=== PATIENT | female | born 1935 | race Caucasian/White ===

== ENCOUNTER → 2017-02-16 | Outpatient (CLI) | payer MEDICARE, BC ==
--- NOTE | 2017-02-17 14:12 | RADRPT ---
Vent Rate: 71 bpm RR Interval: 0 msec NM Interval: 168 msec QRS Duration: 90 msec QT Interval: 382 msec QTC Interval: 415 msec P-R-T [place]: 61 - 58 - 54 degrees Normal sinus rhythm Normal ECG Electronically Signed By: Shon Arce [id number]
== END | disposition home or self-care (01) ==
LOC: RAD 16:01
PROVIDERS: ATTEND Internal Medicine
DX: R07.89 Other chest pain (principal)
CPT/HCPCS: 93005

== ENCOUNTER 2017-04-06 15:09 | Inpatient (IN) | payer MEDICARE, BC ==
[~2017-04-06] VITALS: Ht 157.5 cm; Wt 68.9 kg
[2017-04-06] MEDS ORDERED: SOD CHLORIDE 0.9% 1,000 ML IV STA (17:52)
[2017-04-06 18:14] LABS: ADD SCAN DIFF NO
[2017-04-06 18:17] LABS: ABNORMAL IP MESSAGE 1; BASOPHILS % 0.7 % (0.0-2.0); EOSINOPHILS # 0.1 10^3/ul (0.0-0.5); EOSINOPHILS % 2.3 % (0.0-7.0); HEMATOCRIT 43.7 % (37.0-47.0); HEMOGLOBIN 15.2 g/dl (12.0-16.0); LYMPHOCYTES # 1.8 10^3/ul (0.8-2.9); LYMPHOCYTES % 31.9 % (15.0-51.0); MEAN CORPUSCULAR HEMOGLOBIN 33.8 pg (29.0-33.0); MEAN CORPUSCULAR HGB CONC 34.8 g/dl (32.0-37.0); MEAN CORPUSCULAR VOLUME 97.1 fl (82.0-101.0); MEAN PLATELET VOLUME 13.1 fl (7.4-10.4); MONOCYTE # 0.7 10^3/ul (0.3-0.9); MONOCYTES % 11.9 % (0.0-11.0); NEUTROPHILS % 52.8 % (39.0-77.0); PLATELET COUNT 100 10^3/UL (140-415); RED CELL DISTRIBUTION WIDTH 17.5 % (11.5-14.5); WHITE BLOOD COUNT 5.6 10^3/ul (4.8-10.8)
[2017-04-06 18:33] LABS: ALBUMIN 4.2 g/dl (3.3-4.9); ALBUMIN/GLOBULIN RATIO 1.27; BILIRUBIN,DIRECT 3.7 mg/dl (0.00-0.20); BILIRUBIN,INDIRECT 2.1 mg/dl (0-1.1); BILIRUBIN,TOTAL 5.8 mg/dl (0.2-1.3); CALCIUM 9.3 mg/dl (8.4-10.2); CREATININE 0.75 mg/dl (0.44-1.00); POTASSIUM 3.9 mmol/L (3.5-5.1); TOTAL PROTEIN 7.5 g/dl (6.1-8.1)
[2017-04-06] MEDS ORDERED: ATOR40TA68 PO (18:59)
[2017-04-06] MEDS ORDERED: SOD CHLORIDE 0.9% 100 ML ONE (19:37)
[2017-04-06] MEDS ORDERED: IOHEXOL 300MG/ML 150 ML BTL ONE (19:37)
[2017-04-06 19:56] LABS: ADD UMIC YES; UR ASCORBIC ACID NEGATIVE (NEGATIVE); UR BACTERIA MANY /HPF (NONE SEEN); UR BILIRUBIN (Dip) NEGATIVE (NEGATIVE); UR BLOOD (Dip) NEGATIVE (NEGATIVE); UR CLARITY CLEAR (CLEAR); UR COLOR YELLOW (YELLOW); UR GLUCOSE (Dip) NEGATIVE (NEGATIVE); UR KETONES (Dip) NEGATIVE (NEGATIVE); UR LEUKOCYTE ESTERASE (Dip) TRACE Leu/ul (NEGATIVE); UR NITRITE (Dip) POSITIVE (NEGATIVE); UR RBC 1 /HPF (0-5); UR SPECIFIC GRAVITY (Dip) 1.006 (1.003-1.030); UR TOTAL PROTEIN (Dip) NEGATIVE (NEGATIVE); UR UROBILINOGEN (Dip) 2+ mg/dL (NEGATIVE)
[2017-04-06 20:26] LABS: HAAIG REFLEX REFLEX FILED
--- NOTE | 2017-04-06 20:54 | RADRPT ---
PROCEDURE: CT scan of the abdomen and pelvis with IV contrast. CLINICAL INDICATION: 81-year-old female with pain and jaundice. TECHNIQUE: Thin section axial, coronal and sagittal images were performed through the abdomen and pelvis following uncomplicated intravenous administration of ccs of contrast. Radiation Dose: CTDI: 11.52 and DLP: 650 One or more of the following dose reduction techniques were used: - Automated exposure control. - Adjustment of the mA and/or kV according to patient size. Use of iterative reconstruction technique. COMPARISON: No. FINDINGS: Soft tissues: There is a small midline umbilical hernia which contains fat. There are small inguina l hernias which contain fat. Lungs and pleural spaces: A 7 mm pulmonary nodule is identified in the periphery of the right middl e lobe. There is a 6 mm pleural-based pulmonary nodule in the lower periphery of the right lower lob e. There is plate-like atelectasis in the right lower lobe. There is peripheral compressive atelect asis in the bases of the lungs. No pleural effusion is identified. Heart: Normal. No pericardial effusion is identified. The liver, common bile duct and gallbladder: There is a 8 mm subcapsular lesion in the medial segmen t of the right lobe of the liver. This is likely a cyst. This should be further characterized with ultrasound for confirmation. There is diffuse fatty infiltration of the liver with periportal sobeida a. There are clips in the right upper quadrant from prior cholecystectomy. There is an fatty infil tration of the liver in the lateral segment of the left lobe of the liver. The hepatic and portal v eins are patent. Gastrointestinal: There is no evidence of a hiatal hernia. The stomach contains fluid but is otherw ise unremarkable. The small bowel loops have a normal caliber. There are diverticula in the sigmoid colon without evidence of diverticulitis. There is no evidence of diverticulitis. The vermiform a ppendix is not visualized but there are no signs of appendicitis. Pancreas: Kidneys, bladder and adrenal glands : There is a 1 x 8 mm lesion which is likely a cyst in the dorsa l upper third of the right kidney. There is a 7 mm lesion in the ventral lower third of the right k idney which is likely a small cyst. There is a 7 mm lesion in the dorsal lateral inferior third of the left kidney which is likely a cys t. There is a 5 mm lesion just superior to this in the central portion of the lower third of the le ft kidney which is too small to characterize but likely is a benign lesion such as a cyst. 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 The adrenal glands are normal. The urinary bladder is unr emarkable. Spleen: There are calcifications in the spleen as result of a prior granulomatous process. This is often the result of histoplasmosis. Lymph nodes: Normal. Reproductive system and pelvis : A 1.5 cm calcified leiomyoma is identified in the left side of the fundus of the uterus. A 1.6 cm left paraovarian cyst is noted. The 1.4 cm right ovarian cyst is no kristine. Bony elements: There are degenerative osteophytes in the thoracic and lumbar spine. There is vacuum disk phenomenon from L1-2 to L4-5. No acute bony fracture or bone metastasis is identified. Vasculature: There are atherosclerotic vascular calcifications in the abdominal aorta, common iliac arteries, internal and external iliac and common femoral arteries. IMPRESSION: 1. There is a 7 mm pulmonary nodule in the periphery of the right middle lobe. There is a 6 mm ple ural-based nodule in the periphery of the right lower lobe. Follow-up imaging is recommended in 3-6 months along with TB skin testing. 2. Periportal edema with evidence of prior cholecystectomy. 3. 8 mm subcapsular lesion in the medial segment right lobe of the liver. This is likely a benign cyst. Focal fatty infiltration of the liver near the falciform ligament in the lateral segment of t he left lobe of the liver. Ultrasound is recommended for confirmation. 4. Calcified granulomas are noted in the spleen. 5. There are small lesions in both kidneys which are likely cysts and will be further characterized by the recommended ultrasound. 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 6. Atherosclerotic vascular disease. 7. Small midline umbilical hernia containing fat. Number a 1.5 cm calcified leiomyoma left fundus of the uterus. 8. 1.4 cm right ovarian cyst. 1.6 left para ovarian cyst. 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 10. Diverticulosis of the sigmoid colon without evidence of appendicitis or diverticulitis. The ve rmiform appendix was not clearly visualized. RPTAT:AAJJ Jose Ml, Physician Date Time Electronically viewed and signed by Jose Bull Physician on 04/06/2017 20:54 JM/
[2017-04-06 21:37] LABS: HEPATITIS B CORE ANTIBODY NEGATIVE (NEGATIVE)
[2017-04-06] MEDS ORDERED: SOD CHLORIDE 0.9% 1,000 ML IV SCH (21:52)
--- NOTE | 2017-04-06 21:56 | ERA ---
ER Documentation Chief Complaint Date/Time DATE: 04/06/17 TIME: 21:53 Chief Complaint Complains of abdominal and epigastric pain with jaundice HPI This is a 81-year-old female has complained of epigastric pain off-and-on for a month but worse over the past 2 weeks described as a sharp pain is not constant. Says nothing makes it worse or better. Patient was thinking she had diagnosis of gastritis. The patient says she woke today and her told her that her eyes looked yellow. She says she has been having a bright yellow colored urine for the past few days as well as some pale colored stools. No vomiting diarrhea or fever. No recent travel. ROS All systems reviewed and are negative except as per history of present illness. Medications Home Meds Reported Medications Atorvastatin* (Atorvastatin*) 40 Mg Tablet, 40 MG PO QHS, #30 TAB 04/06/17 Allergies Allergies: Coded Allergies: scopolamine (Unverified Allergy, Intermediate, 04/06/17) atropine (Unverified Allergy, Unknown, 04/06/17) PMhx/Soc Hx Alcohol Use: Yes Hx Substance Use: No Hx Tobacco Use: No Smoking Status: Never smoker FmHx Family History: No coronary disease Physical Exam Vitals Vital Signs Date Time Temp Pulse Resp B/P Pulse Ox O2 Delivery O2 Flow Rate FiO2 04/06/17 15:19 98.3 77 20 133/62 99 Physical Exam Const: Well-developed, well-nourished Head: Atraumatic, normocephalic Eyes: Normal Conjunctiva, scleral icterus PERRLA, EOMI, no nystagmus ENT: Normal External Ears, Nose and Mouth, moist mucus membranes. Neck: Full range of motion. No meningismus, no lymphadenopathy. Resp: Clear to auscultation bilaterally, no wheezing, rhonchi, rales Cardio: Regular rate and rhythm, no murmurs, S1 S2 present Abd: Soft, mild epigastric tenderness, non distended. Normal bowel sounds, no guarding or rebound, no pulsitile abdominal masses or bruits Skin: No petechiae or rashes, no ecchymosis , no maculopapular rash Back: No midline or flank tenderness Ext: No cyanosis, or edema, FROM x 4, normal inspection, neurovascularly intact x 4 Neur: Awake and alert, STR 5/5 x 4, sensation intact x 4, no focal findings, cerebellum intact Psych: Normal Mood and Affect Result Diagram: 04/06/17 1755 04/06/17 175 Results 24 hrs Laboratory Tests Test 04/06/17 17:55 04/06/17 19:15 White Blood Count 5.610^3/ul Red Blood Count 4.5010^6/ul Hemoglobin 15.2g/dl Hematocrit 43.7% Mean Corpuscular Volume 97.1fl Mean Corpuscular Hemoglobin 33.8pg Mean Corpuscular Hemoglobin Concent 34.8g/dl Red Cell Distribution Width 17.5% Platelet Count 06973^3/UL Mean Platelet Volume 13.1fl Neutrophils % 52.8% Lymphocytes % 31.9% Monocytes % 11.9% Eosinophils % 2.3% Basophils % 0.7% Nucleated Red Blood Cells % 0.0/100WBC Neutrophils # 3.010^3/ul Lymphocytes # 1.810^3/ul Monocytes # 0.710^3/ul Eosinophils # 0.110^3/ul Basophils # 0.010^3/ul Nucleated Red Blood Cells # 0.010^3/ul Sodium Level 142mmol/L Potassium Level 3.9mmol/L Chloride Level 104mmol/L Carbon Dioxide Level 30mmol/L Anion Gap 12 Blood Urea Nitrogen 15mg/dl Creatinine 0.75mg/dl Glucose Level 100mg/dl Calcium Level 9.3mg/dl Total Bilirubin 5.8mg/dl Direct Bilirubin 3.70mg/dl Indirect Bilirubin 2.1mg/dl Aspartate Amino Transf (AST/SGOT) 1495IU/L Alanine Aminotransferase (ALT/SGPT) 2354IU/L Alkaline Phosphatase 381IU/L Total Protein 7.5g/dl Albumin 4.2g/dl Globulin 3.30g/dl Albumin/Globulin Ratio 1.27 Lipase 318U/L Hepatitis B Surface Antigen NEGATIVE Hepatitis B Core Total Antibody NEGATIVE Hepatitis C Antibody NEGATIVE Urine Color YELLOW Urine Clarity CLEAR Urine pH 6.0 Urine Specific [place] 1.006 Urine Ketones NEGATIVEmg/dL Urine Nitrite POSITIVEmg/dL Urine Bilirubin NEGATIVEmg/dL Urine Urobilinogen 2+mg/dL Urine Leukocyte Esterase TRACELeu/ul Urine Microscopic RBC 1/HPF Urine Microscopic WBC 5/HPF Urine Bacteria MANY/HPF Urine Hemoglobin NEGATIVEmg/dL Urine Glucose NEGATIVEmg/dL Urine Total Protein NEGATIVEmg/dl Current Medications Medications (Trade) Dose Ordered Sig/Bravo Route PRN Reason Start Time Stop Time Status Last Admin Dose Admin Sodium Chloride (NS) 1,000 ml @ 1,000 mls/hr Q1H STAT IV 04/06/17 17:52 04/06/17 18:51 DC 04/06/17 18:04 IV Flush 10 ml 10 ml STK-MED ONCE .ROUTE 04/06/17 19:37 04/06/17 19:38 DC 04/06/17 19:45 Sodium Chloride (NS) 100 ml @ ud STK-MED ONCE .ROUTE 04/06/17 19:37 04/06/17 19:38 DC 04/06/17 19:45 Iohexol (Omnipaque 300mg/ ml) 150 ml STK-MED ONCE .ROUTE 04/06/17 19:37 04/06/17 19:38 DC 04/06/17 19:45 Procedures/MDM PROCEDURE: CT scan of the abdomen and pelvis with IV contrast. CLINICAL INDICATION: 81-year-old female with pain and jaundice. TECHNIQUE: Thin section axial, coronal and sagittal images were performed through the abdomen and pelvis following uncomplicated intravenous administration of ccs of contrast. Radiation Dose: CTDI: 11.52 and DLP: 650 One or more of the following dose reduction techniques were used: - Automated exposure control. - Adjustment of the mA and/or kV according to patient size. Use of iterative reconstruction technique. COMPARISON: No. FINDINGS: Soft tissues: There is a small midline umbilical hernia which contains fat. There are small inguinal hernias which contain fat. Lungs and pleural spaces: A 7 mm pulmonary nodule is identified in the periphery of the right middle lobe. There is a 6 mm pleural-based pulmonary nodule in the lower periphery of the right lower lobe. There is plate-like atelectasis in the right lower lobe. There is peripheral compressive atelectasis in the bases of the lungs. No pleural effusion is identified. Heart: Normal. No pericardial effusion is identified. The liver, common bile duct and gallbladder: There is a 8 mm subcapsular lesion in the medial segment of the right lobe of the liver. This is likely a cyst. This should be further characterized with ultrasound for confirmation. There is diffuse fatty infiltration of the liver with periportal edema. There are clips in the right upper quadrant from prior cholecystectomy. There is an fatty infiltration of the liver in the lateral segment of the left lobe of the liver. The hepatic and portal veins are patent. Gastrointestinal: There is no evidence of a hiatal hernia. The stomach contains fluid but is otherwise unremarkable. The small bowel loops have a normal caliber. There are diverticula in the sigmoid colon without evidence of diverticulitis. There is no evidence of diverticulitis. The vermiform appendix is not visualized but there are no signs of appendicitis. Pancreas: Kidneys, bladder and adrenal glands : There is a 1 x 8 mm lesion which is likely a cyst in the dorsal upper third of the right kidney. There is a 7 mm lesion in the ventral lower third of the right kidney which is likely a small cyst. There is a 7 mm lesion in the dorsal lateral inferior third of the left kidney which is likely a cyst. There is a 5 mm lesion just superior to this in the central portion of the lower third of the left kidney which is too small to characterize but likely is a benign lesion such as a cyst. 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 The adrenal glands are normal. The urinary bladder is unremarkable. Spleen: There are calcifications in the spleen as result of a prior granulomatous process. This is often the result of histoplasmosis. Lymph nodes: Normal. Reproductive system and pelvis : A 1.5 cm calcified leiomyoma is identified in the left side of the fundus of the uterus. A 1.6 cm left paraovarian cyst is noted. The 1.4 cm right ovarian cyst is noted. Bony elements: There are degenerative osteophytes in the thoracic and lumbar spine. There is vacuum disk phenomenon from L1-2 to L4-5. No acute bony fracture or bone metastasis is identified. Vasculature: There are atherosclerotic vascular calcifications in the abdominal aorta, common iliac arteries, internal and external iliac and common femoral arteries. IMPRESSION: 1. There is a 7 mm pulmonary nodule in the periphery of the right middle lobe. There is a 6 mm pleural-based nodule in the periphery of the right lower lobe. Follow-up imaging is recommended in 3-6 months along with TB skin testing. 2. Periportal edema with evidence of prior cholecystectomy. 3. 8 mm subcapsular lesion in the medial segment right lobe of the liver. This is likely a benign cyst. Focal fatty infiltration of the liver near the falciform ligament in the lateral segment of the left lobe of the liver. Ultrasound is recommended for confirmation. 4. Calcified granulomas are noted in the spleen. 5. There are small lesions in both kidneys which are likely cysts and will be further characterized by the recommended ultrasound. 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 6. Atherosclerotic vascular disease. 7. Small midline umbilical hernia containing fat. Number a 1.5 cm calcified leiomyoma left fundus of the uterus. 8. 1.4 cm right ovarian cyst. 1.6 left para ovarian cyst. 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 10. Diverticulosis of the sigmoid colon without evidence of appendicitis or diverticulitis. The vermiform appendix was not clearly visualized. RPTAT:AAJJ Physician Marika Date Time Electronically viewed and signed by Jose Bull Physician on 04/06/2017 20:54 JM/ CC: ARNDALL BURRIS DO Hepatitis panel is currently pending. We will admit to the hospital for acute hepatitis No signs of pancreatic mass on CT scan Departure Diagnosis: Primary Impression: Hepatitis Condition: Stable RANDALL BURRIS DO Apr 06, 2017 21:56
[2017-04-06] MEDS ORDERED: ONDANSETRON 4 MG INJ IV PRN (22:00)
[2017-04-06] MEDS ORDERED: ACETAMINOPHEN 325 MG TAB PO PRN (22:00)
[2017-04-06 22:20] VITALS: TEMP 98.1
[2017-04-06 23:00] VITALS: BP 135/68; PULSE 62; RESP 17
[2017-04-07 05:05] VITALS: Ht 157.5 cm; Wt 68.9 kg
[2017-04-07 05:18] LABS: ADD SCAN DIFF NO
[2017-04-07 05:32] LABS: ABNORMAL IP MESSAGE 1; BASOPHIL # 0.1 10^3/ul (0.0-0.1); EOSINOPHILS # 0.2 10^3/ul (0.0-0.5); EOSINOPHILS % 3.4 % (0.0-7.0); HEMATOCRIT 37.3 % (37.0-47.0); HEMOGLOBIN 13.5 g/dl (12.0-16.0); LYMPHOCYTES # 1.8 10^3/ul (0.8-2.9); LYMPHOCYTES % 35.9 % (15.0-51.0); MEAN CORPUSCULAR HEMOGLOBIN 36.6 pg (29.0-33.0); MEAN CORPUSCULAR HGB CONC 36.2 g/dl (32.0-37.0); MEAN CORPUSCULAR VOLUME 101.1 fl (82.0-101.0); MEAN PLATELET VOLUME 13.4 fl (7.4-10.4); MONOCYTE # 0.7 10^3/ul (0.3-0.9); MONOCYTES % 13.9 % (0.0-11.0); NEUTROPHIL # 2.3 10^3/ul (1.6-7.5); NEUTROPHILS % 45.6 % (39.0-77.0); PLATELET COUNT 72 10^3/UL (140-415); RED BLOOD COUNT 3.69 10^6/ul (4.20-5.40); RED CELL DISTRIBUTION WIDTH 19.6 % (11.5-14.5)
[2017-04-07 05:53] LABS: ALBUMIN 3.5 g/dl (3.3-4.9); ALBUMIN/GLOBULIN RATIO 1.2; BILIRUBIN,DIRECT 3.6 mg/dl (0.00-0.20); BILIRUBIN,INDIRECT 1.8 mg/dl (0-1.1); BILIRUBIN,TOTAL 5.4 mg/dl (0.2-1.3); CALCIUM 8.7 mg/dl (8.4-10.2); CREATININE 0.7 mg/dl (0.44-1.00); POTASSIUM 4.1 mmol/L (3.5-5.1); TOTAL PROTEIN 6.4 g/dl (6.1-8.1)
[2017-04-07 06:01] LABS: INR 1.29; PROTIME 16.2 Sec (12.2-14.2); PT RATIO 1.3
[2017-04-07 06:02] LABS: PARTIAL THROMBOPLASTIN TIME 32.4 Sec (25.0-35.0)
[2017-04-07 08:08] VITALS: BP 138/63; RESP 16
[2017-04-07] MEDS: SOD CHLORIDE 0.9% 1,000 ML IV SCH ×2 (10:08→21:02)
--- NOTE | 2017-04-07 12:19 | RADRPT ---
PROCEDURE: MR Abdomen. CLINICAL INDICATION: Upper abdominal pain. Elevated bilirubin levels. Hepatitis. History of cholec ystectomy 10 years ago. TECHNIQUE: MRI abdomen without contrast was performed on the a high-resolution, high Norm[employer] field [facility] scanner. Patient was examined without IV contrast. Images were reviewed on a [employer] PACS workstation. COMPARISON: CT from 04/06/2017. FINDINGS: MRI Abdomen: The liver is normal in size and demonstrates nodular surface contour. There is diffuse periportal i ncreased T2 signal. A small well-defined 1 cm lesion in the left hepatic lobe is consistent with a simple cyst. No additional suspicious lesions are seen. There is no intrahepatic or extrahepatic b iliary ductal dilatation. The common bile duct measures 5.9 mm and tapers smoothly towards the ampul la. No focal signal abnormality is seen within the biliary tree to suggest choledocholithiasis. Th e gallbladder surgically absent. The gallbladder fossa is unremarkable. The spleen is borderline prominent measuring 12 cm in craniocaudal dimension. The pancreas is mildl y atrophic. A small T2 hyperintense lesions within the kidneys likely represent simple cysts. Ther e is no hydronephrosis. Mildly prominent extrarenal pelvises are noted bilaterally. The adrenal gl ands are unremarkable. The stomach and visualized bowel is also grossly unremarkable. The aorta is of normal caliber. There is no retroperitoneal lymphadenopathy. IMPRESSION: 1. Nodular liver surface contour, suggesting cirrhosis. Borderline splenomegaly may be related to p ortal hypertension. Simple-appearing 1 cm left hepatic lobe lesion likely represents a simple cyst. No evidence of suspicious hepatic lesion. 2. Periportal increased T2 signal consistent with periportal edema. This may be seen in the settin g of acute hepatitis or congestive heart failure. 3. No evidence of biliary ductal dilatation, choledocholithiasis, or biliary obstruction RPTAT: BB .Leobardo Aparicio MD, MD Date Time Electronically viewed and signed by .Leobardo Aparicio MD, on 04/07/2017 12:19 .A/
--- NOTE | 2017-04-07 19:40 | CONS ---
Date/Time of Note Date/Time of Note DATE: 04/07/17 TIME: 19:37 Assessment/Plan Assessment/Plan Additional Assessment/Plan 1. Abnormal liver function test secondary to cirrhosis of liver the cause needs to be determined 2. Hyperlipidemia Plan We will send the blood tests for chronic liver disease Patient may need EGD for epigastric pain and also look for the varicose vein in the esophagus Lipitor needs to be stopped because of high SGOT and SGPT I reviewed her hepatitis panel both hep B and hep C both are negative Consultation Date/Type/Reason Admit Date/Time Apr 07, 2017 at 13:49 Hx of Present Illness 81-year-old female with a history of hyperlipidemia on statin admitted to the hospital for vague abdominal discomfort. No nausea no vomiting no GI bleeding. No chest pain or shortness of breath no fever. No history of hepatitis in the past no history of weight loss. Past Surgical History Past Surgical Hx: cholecystectomy Family History Significant Family History: no pertinent family hx Social History Alcohol Use: none Smoking Status: Never smoker Drug Use: none Exam/Review of Systems Vital Signs Vitals Vital Signs Date Time Temp Pulse Resp B/P Pulse Ox O2 Delivery O2 Flow Rate FiO2 04/07/17 08:08 97.9 58 16 138/63 96 04/06/17 23:00 Room Air Intake and Output 04/06/17 04/06/17 04/07/17 15:00 23:00 07:00 Intake Total 1100 ml 920 ml Balance 1100 ml 920 ml Exam Constitutional: alert, oriented, well developed Psych: nl mood/affect, no complaints Head: atraumatic, normocephalic Eyes: EOMI, PERRL, nl conjunctiva, nl lids, nl sclera ENMT: nl external ears & nose, nl lips & teeth, nl nasal mucosa & septum Neck: non-tender, supple Respiratory: clear to auscultation, normal air movement Cardiovascular: nl pulses, regular rate and rhythm Gastrointestinal: nl liver, spleen, non-tender, soft Musculoskeletal: nl extremities to inspection, nl gait and stance Extremities: normal pulses Neurological: VENEER SANDER II-XII intact, nl mental status, nl speech, nl strength Skin: nl turgor, No rash or lesions Lymph: nl lymph nodes Results Result Diagram: 04/07/17 0450 04/07/17 0459 Results 24 hrs Laboratory Tests Test 04/07/17 04:50 04/07/17 04:59 White Blood Count 5.0 Red Blood Count 3.69 L Hemoglobin 13.5 Hematocrit 37.3 Mean Corpuscular Volume 101.1 H Mean Corpuscular Hemoglobin 36.6 H Mean Corpuscular Hemoglobin Concent 36.2 Red Cell Distribution Width 19.6 H Platelet Count 72 #L Mean Platelet Volume 13.4 H Neutrophils % 45.6 Lymphocytes % 35.9 Monocytes % 13.9 H Eosinophils % 3.4 Basophils % 1.0 Nucleated Red Blood Cells % 0.0 Neutrophils # 2.3 Lymphocytes # 1.8 Monocytes # 0.7 Eosinophils # 0.2 Basophils # 0.1 Nucleated Red Blood Cells # 0.0 Prothrombin Time 16.2 H Prothrombin Time Ratio 1.3 INR International Normalized Ratio 1.29 Activated Partial Thromboplast Time 32.4 Alpha Fetoprotein 14.50 H Sodium Level 146 H Potassium Level 4.1 Chloride Level 111 H Carbon Dioxide Level 27 Anion Gap 12 Blood Urea Nitrogen 12 Creatinine 0.70 Glucose Level 80 Calcium Level 8.7 Total Bilirubin 5.4 H Direct Bilirubin 3.60 H Indirect Bilirubin 1.8 H Aspartate Amino Transf (AST/SGOT) 1344 H Alanine Aminotransferase (ALT/SGPT) 1940 H Alkaline Phosphatase 303 H Total Protein 6.4 # Albumin 3.5 Globulin 2.90 Albumin/Globulin Ratio 1.20 CA 19-9 Antigen 268.0 H Medications Medications Current Medications Sodium Chloride (NS) 1,000 ml @ 50 mls/hr Q20H IV Last administered on t 10:08; Admin Dose 50 MLS/HR; Start 04/07/17 at 09:40 ARCELIA GOINS MD Apr 07, 2017 19:40
[2017-04-07 19:50] VITALS: BP 130/76; RESP 18
[2017-04-08 05:50] LABS: ADD SCAN DIFF NO
[2017-04-08 06:14] LABS: INR 1.42; PROTIME 17.4 Sec (12.2-14.2); PT RATIO 1.4
[2017-04-08 06:15] LABS: ABNORMAL IP MESSAGE 1; BASOPHILS % 0.9 % (0.0-2.0); EOSINOPHILS # 0.3 10^3/ul (0.0-0.5); EOSINOPHILS % 5.5 % (0.0-7.0); HEMATOCRIT 36.3 % (37.0-47.0); HEMOGLOBIN 13.2 g/dl (12.0-16.0); LYMPHOCYTES # 1.4 10^3/ul (0.8-2.9); LYMPHOCYTES % 30.9 % (15.0-51.0); MEAN CORPUSCULAR HEMOGLOBIN 36.4 pg (29.0-33.0); MEAN CORPUSCULAR HGB CONC 36.4 g/dl (32.0-37.0); MEAN PLATELET VOLUME 13.5 fl (7.4-10.4); MONOCYTE # 0.7 10^3/ul (0.3-0.9); MONOCYTES % 14.3 % (0.0-11.0); NEUTROPHIL # 2.2 10^3/ul (1.6-7.5); NEUTROPHILS % 48.2 % (39.0-77.0); PARTIAL THROMBOPLASTIN TIME 31.8 Sec (25.0-35.0); PLATELET COUNT 67 10^3/UL (140-415); RED BLOOD COUNT 3.63 10^6/ul (4.20-5.40); WHITE BLOOD COUNT 4.5 10^3/ul (4.8-10.8)
[2017-04-08 06:35] LABS: ALBUMIN 3.1 g/dl (3.3-4.9); ALBUMIN/GLOBULIN RATIO 1.06; BILIRUBIN,DIRECT 3.4 mg/dl (0.00-0.20); BILIRUBIN,INDIRECT 2.1 mg/dl (0-1.1); BILIRUBIN,TOTAL 5.5 mg/dl (0.2-1.3); CALCIUM 8.5 mg/dl (8.4-10.2); CREATININE 0.76 mg/dl (0.44-1.00); POTASSIUM 4.2 mmol/L (3.5-5.1)
[2017-04-08 08:00] VITALS: BP 137/64; RESP 20
[2017-04-08] MEDS ORDERED: ONDANSETRON 4 MG INJ IV PRN (08:30)
[2017-04-08] MEDS: PANTOPRAZOLE (EC) 40 MG TAB PO SCH (08:48)
[2017-04-08] MEDS: SOD CHLORIDE 0.9% 1,000 ML IV SCH (18:19)
[2017-04-08 20:01] VITALS: BP 146/72; RESP 22
--- NOTE | 2017-04-08 20:07 | CONS ---
Date/Time of Note Date/Time of Note DATE: 04/08/17 TIME: 20:04 Assessment/Plan Assessment/Plan Chief Complaint/Hosp Course 81-year-old female with a history of hyperlipidemia on statin admitted to the hospital for vague abdominal discomfort. No nausea no vomiting no GI bleeding. No chest pain or shortness of breath no fever. No history of hepatitis in the past no history of weight loss. Problems: Additional Assessment/Plan Additional Assessment/Plan 1. Abnormal liver function test secondary to cirrhosis of liver the cause needs to be determined 2. Hyperlipidemia 3. Epigastric pain 4. Elevated CA 19 9 Plan We will send the blood tests for chronic liver disease Patient may need EGD for epigastric pain and also look for the varicose vein in the esophagus. Discussed with the patient and has agreed for the Lipitor needs to be stopped because of high SGOT and SGPT I reviewed her hepatitis panel both hep B and hep C both are negative Patient will need pancreatic protocol CT scan and if negative then monitor CA 199 periodically. Patient might benefit from EUS Consultation Date/Type/Reason Admit Date/Time Apr 07, 2017 at 13:49 Initial Consult Date 24 HR Interval Summary Free Text/Dictation Patient now admits to having epigastric discomfort for last few week. No history of ethanol abuse or overweight in the past Exam/Review of Systems Vital Signs Vitals Vital Signs Date Time Temp Pulse Resp B/P Pulse Ox O2 Delivery O2 Flow Rate FiO2 04/08/17 20:01 98.5 66 22 146/72 100 04/06/17 23:00 Room Air Intake and Output 04/07/17 04/07/17 04/08/17 15:00 23:00 07:00 Intake Total 1600 ml 1000 ml Balance 1600 ml 1000 ml Exam Constitutional: alert, oriented, well developed Psych: nl mood/affect, no complaints Head: atraumatic, normocephalic Eyes: EOMI, PERRL, nl conjunctiva, nl lids, nl sclera ENMT: nl external ears & nose, nl lips & teeth, nl nasal mucosa & septum Neck: non-tender, supple Respiratory: clear to auscultation, normal air movement Cardiovascular: nl pulses, regular rate and rhythm Gastrointestinal: nl liver, spleen, non-tender, soft Musculoskeletal: nl extremities to inspection, nl gait and stance Extremities: normal pulses Neurological: CAREER EDUCATION TEACHER II-XII intact, nl mental status, nl speech, nl strength Skin: nl turgor, No rash or lesions Lymph: nl lymph nodes Results Result Diagram: 04/08/17 0510 04/08/17 0510 Results 24 hrs Laboratory Tests Test 04/08/17 05:10 White Blood Count 4.5 L Red Blood Count 3.63 L Hemoglobin 13.2 Hematocrit 36.3 L Mean Corpuscular Volume 100.0 Mean Corpuscular Hemoglobin 36.4 H Mean Corpuscular Hemoglobin Concent 36.4 Red Cell Distribution Width 19.0 H Platelet Count 67 L Mean Platelet Volume 13.5 H Neutrophils % 48.2 Lymphocytes % 30.9 Monocytes % 14.3 H Eosinophils % 5.5 Basophils % 0.9 Nucleated Red Blood Cells % 0.0 Neutrophils # 2.2 Lymphocytes # 1.4 Monocytes # 0.7 Eosinophils # 0.3 Basophils # 0.0 Nucleated Red Blood Cells # 0.0 Prothrombin Time 17.4 H Prothrombin Time Ratio 1.4 INR International Normalized Ratio 1.42 Activated Partial Thromboplast Time 31.8 Sodium Level 141 Potassium Level 4.2 Chloride Level 111 H Carbon Dioxide Level 27 Anion Gap 7 L Blood Urea Nitrogen 9 Creatinine 0.76 Glucose Level 79 Calcium Level 8.5 Total Bilirubin 5.5 H Direct Bilirubin 3.40 H Indirect Bilirubin 2.1 H Aspartate Amino Transf (AST/SGOT) 1126 H Alanine Aminotransferase (ALT/SGPT) 1631 H Alkaline Phosphatase 304 H Total Protein 6.0 L Albumin 3.1 L Globulin 2.90 Albumin/Globulin Ratio 1.06 Medications Medications Current Medications Sodium Chloride (NS) 1,000 ml @ 50 mls/hr Q20H IV Last administered on 18:19; Admin Dose 50 MLS/HR; Start 04/07/17 at 09:40 Ondansetron HCl (Zofran Inj) 4 mg Q6H PRN IV NAUSEA AND/OR VOMITING; Start at 08:30 Pantoprazole (Protonix Tab) 40 mg DAILY@06 PO Last administered on 04/08/17 08 :48; Admin Dose 40 MG; Start 04/08/17 at 08:30 Tramadol HCl 50 mg 50 mg Q6H PRN PO PAIN LEVEL 7-10; Start 04/08/17 at 08:30 Ceftriaxone Sodium (Rocephin) 50 ml @ 100 mls/hr Q24H IVPB ; Start 04/08/17 at 20:00 ARCELIA GOINS MD Apr 08, 2017 20:07
[2017-04-08] MEDS: CEFTRIAXONE 1 GM/50 ML (PMX) 50 ML IVPB SCH (20:41)
[2017-04-09] MEDS: traMADol 50 MG TAB PO PRN (00:30)
[2017-04-09 05:15] LABS: ADD SCAN DIFF NO
[2017-04-09 05:18] LABS: ABNORMAL IP MESSAGE 1; BASOPHIL # 0.1 10^3/ul (0.0-0.1); BASOPHILS % 0.9 % (0.0-2.0); EOSINOPHILS # 0.3 10^3/ul (0.0-0.5); EOSINOPHILS % 4.5 % (0.0-7.0); HEMATOCRIT 37.8 % (37.0-47.0); HEMOGLOBIN 13.9 g/dl (12.0-16.0); LYMPHOCYTES # 1.7 10^3/ul (0.8-2.9); LYMPHOCYTES % 29.9 % (15.0-51.0); MEAN CORPUSCULAR HEMOGLOBIN 37.2 pg (29.0-33.0); MEAN CORPUSCULAR HGB CONC 36.8 g/dl (32.0-37.0); MEAN CORPUSCULAR VOLUME 101.1 fl (82.0-101.0); MEAN PLATELET VOLUME 13.4 fl (7.4-10.4); MONOCYTE # 0.8 10^3/ul (0.3-0.9); NEUTROPHIL # 2.9 10^3/ul (1.6-7.5); NEUTROPHILS % 50.5 % (39.0-77.0); RED BLOOD COUNT 3.74 10^6/ul (4.20-5.40); RED CELL DISTRIBUTION WIDTH 19.9 % (11.5-14.5); WHITE BLOOD COUNT 5.7 10^3/ul (4.8-10.8)
[2017-04-09 05:38] LABS: INR 1.3; PROTIME 16.3 Sec (12.2-14.2); PT RATIO 1.3
[2017-04-09 05:42] LABS: PLATELET COUNT 80 10^3/UL (140-415)
[2017-04-09] MEDS: PANTOPRAZOLE (EC) 40 MG TAB PO SCH (06:00)
[2017-04-09 06:01] LABS: ALBUMIN 3.2 g/dl (3.3-4.9); BILIRUBIN,DIRECT 3.1 mg/dl (0.00-0.20); BILIRUBIN,TOTAL 5.1 mg/dl (0.2-1.3); CALCIUM 8.8 mg/dl (8.4-10.2); CREATININE 0.62 mg/dl (0.44-1.00); MAGNESIUM 1.8 mg/dl (1.7-2.5); TOTAL PROTEIN 6.4 g/dl (6.1-8.1)
[2017-04-09 08:15] VITALS: BP 127/63; RESP 20
[2017-04-09 11:46] LABS: ANA SCREEN NEGATIVE (NEGATIVE)
--- NOTE | 2017-04-09 13:00 | HP ---
Date/Time of Note Date/Time of Note DATE: 04/07/17 TIME: 12:52 Assessment/Plan VTE Prophylaxis VTE Prophylaxis Intervention: ambulation Lines/Catheters IV [facility] Type [facility] Peripheral IV Urinary Cath still in place: No Assessment/Plan Assessment/Plan Impression #1 obstructive jaundice with significant hepatocellular complement possible acute viral hepatitis. Possibility of primary liver cancer and pancreatic cancer not ruled out, 2. Hyperlipidemia on statins. Plan we will proceed with MR BURR and obtain GI consultation with Dr. Abreu. HPI/ROS Admit Date/Time Admit Date/Time Apr 07, 2017 at 13:49 Hx of Present Illness This is a history and physical on Mrs. Harika Gama patient was admitted on . Patient is a 81-year-old lady who is known diabetic known hypertensive with history of hyper lipidemia on atorvastatin 10 mg p.o. daily. Patient presents with 3-4 weeks of epigastric pain and increasing fatigue and with increasing jaundice and was evaluated in the emergency room and was admitted. Patient denies any weight loss denies any nausea or vomiting. She has been having some diarrhea over the past week. ROS Review of the systems: Head no headaches focal weakness or numbness no prior history of stroke. ENT no sinusitis tonsillitis or hearing loss. Chest no bronchitis hayfever or asthma patient does not smoke Heart no history of chest pains palpitations or shortness of breath no history of CA or angina. GI no prior history of gastritis hepatitis or jaundice no change in bowel habits no history of melena. Patient had been advised to have colonoscopy repeatedly and has not done so. No history of weight loss or weight gain. no history of dysuria or hematuria or kidney stones. 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 Psychological: nl mood/affect, no complaints PMH/Family/Social Past Medical History Patient has had cholecystectomy about 5 years ago. Past Surgical History Past Surgical Hx: cholecystectomy Family History Significant Family History: no pertinent family hx Social History Alcohol Use: none Smoking Status: Never smoker Drug Use: none Exam/Review of Systems Vital Signs Vitals Vital Signs Date Time Temp Pulse Resp B/P Pulse Ox O2 Delivery O2 Flow Rate FiO2 04/09/17 08:15 98.4 61 20 127/63 94 04/06/17 23:00 Room Air Intake and Output 04/08/17 04/08/17 04/09/17 15:00 23:00 07:00 Intake Total 2050 ml 910 ml Output Total 1900 ml Balance 150 ml 910 ml Exam Exam On physical exam patient is an averagely built female in no acute distress. Moderate icterus noted. No pallor cyanosis. ENT NAD neck supple no thyromegaly or bruits. Chest clinically clear Heart S1-S2 heard with no gallops or murmurs. Abdomen soft nontender no hepato-spleno megaly no free fluid present. Extremities no edema Homans sign negative. Neurological no localizing or lateralizing signs. Laboratory Labs Result Diagram: 04/09/17 0440 04/09/17 0440 Medications Medications Current Medications Sodium Chloride (NS) 1,000 ml @ 50 mls/hr Q20H IV Last administered on 18:19; Admin Dose 50 MLS/HR; Start 04/07/17 at 09:40 Ondansetron HCl (Zofran Inj) 4 mg Q6H PRN IV NAUSEA AND/OR VOMITING; Start at 08:30 Pantoprazole (Protonix Tab) 40 mg DAILY@06 PO Last administered on 04/08/17 08 :48; Admin Dose 40 MG; Start 04/08/17 at 08:30 Tramadol HCl 50 mg 50 mg Q6H PRN PO PAIN LEVEL 7-10 Last administered on 00:30; Admin Dose 50 MG; Start 04/08/17 at 08:30 Ceftriaxone Sodium (Rocephin) 50 ml @ 100 mls/hr Q24H IVPB Last administered on 04/08/17 20:41; Admin Dose 100 MLS/HR; Start 04/08/17 at 20:00 GREG PIÑA MD Apr 09, 2017 13:00
[2017-04-09 13:09] LABS: MITOCHONDRIAL TB NEGATIVE (NEGATIVE)
[2017-04-09] MEDS ORDERED: LIDOCAINE 100 MG SYRINGE ONE (13:16)
[2017-04-09] MEDS ORDERED: PROPOFOL 20 ML ONE (13:16)
[2017-04-09] MEDS ORDERED: LIDOCAINE 4% SOLUTION 50 ML BTL ONE (13:17)
[2017-04-09 13:26] VITALS: BP 144/73; PULSE 56; RESP 18
[2017-04-09 13:55] VITALS: BP 131/60; PULSE 62; RESP 31
--- NOTE | 2017-04-09 13:59 | PRO ---
Date/Time of Note Date/Time of Note DATE: 04/09/17 TIME: 13:50 Conscious Sedation PROCEDURE NOTE Start Time: 13:30 Stop Time: 13:45 PROCEDURE: EGD with a biopsy INDICATION: [ ] 81-year-old female complains of epigastric discomfort for last 2 -3 weeks. She was recently diagnosed to have cirrhosis of liver. The purpose is to evaluate the upper GI tract for the surveillance of varicose vein and also to identify the cause of her epigastric pain PROCEDURE FLAT SCREEN WORKER: [ ]Arcelia Goins CONSENT: Consent: Discussion of risks and benefits of conscious, including, but not limited to (respiratory depression, over-sedation, and hematoma at IV site) were discussed with family. Anesthetic risk related and related complication explained regarding the procedure and informed consent was obtained. The procedure discussed was EGD with the biopsy possible hemostasis PROCEDURE SUMMARY: Patient was sedated by the ENTRY LEVEL SOFTWARE DEVELOPER ESTIMATED BLOOD LOSS: [ ] 0 Details of the procedure 81-year-old female was brought to the GI lab and after appropriate consent was sedated by ENTRY LEVEL SOFTWARE DEVELOPER with propofol. After optimal sedation scope was passed with much is into the esophagus. Esophagus was grossly normal throughout. The GE junction was at 37 cm. Stomach mucosa revealed moderate to severe gastritis. Random 3-4 biopsies obtained to rule out H. pylori infection. Duodenal mucosa was normal. Ampulla also was normal. There was a large diverticulum in the second part of the duodenum. Scope was brought back into the stomach and retroversion done. No varicose vein identified. Scope was straightened out and removed with good patient's tolerance. Impression 1. Severe gastritis 2. Normal esophagus no varicose vein identified 3. GE junction at 37cm and it was regular 4. Normal duodenum and ampulla 5. 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 Plan We will continue PPI pending biopsy result. We will subject patient for liver biopsy to identify the cause of cirrhosis of liver. ARCELIA GOINS MD Apr 09, 2017 13:59
[2017-04-09 14:01] VITALS: BP 133/63; PULSE 64; RESP 29
[2017-04-09 14:11] VITALS: BP 146/67; PULSE 52; RESP 20
[2017-04-09 20:10] VITALS: BP 150/69; RESP 20
[2017-04-09] MEDS: CEFTRIAXONE 1 GM/50 ML (PMX) 50 ML IVPB SCH (20:44)
[2017-04-09] MEDS ORDERED: SOD CHLORIDE 0.9% 1,000 ML IV SCH (22:00)
[2017-04-10] MEDS: PANTOPRAZOLE (EC) 40 MG TAB PO SCH (05:24)
[2017-04-10 05:28] LABS: ABNORMAL IP MESSAGE 1; BASOPHILS % 0.7 % (0.0-2.0); EOSINOPHILS # 0.3 10^3/ul (0.0-0.5); EOSINOPHILS % 5.2 % (0.0-7.0); HEMATOCRIT 36.8 % (37.0-47.0); LYMPHOCYTES % 33.2 % (15.0-51.0); MEAN CORPUSCULAR HEMOGLOBIN 34.7 pg (29.0-33.0); MEAN CORPUSCULAR HGB CONC 35.3 g/dl (32.0-37.0); MEAN CORPUSCULAR VOLUME 98.1 fl (82.0-101.0); MEAN PLATELET VOLUME 13.3 fl (7.4-10.4); MONOCYTE # 0.8 10^3/ul (0.3-0.9); MONOCYTES % 13.4 % (0.0-11.0); NEUTROPHIL # 2.8 10^3/ul (1.6-7.5); NEUTROPHILS % 47.3 % (39.0-77.0); PLATELET COUNT 78 10^3/UL (140-415); RED BLOOD COUNT 3.75 10^6/ul (4.20-5.40)
[2017-04-10 05:42] LABS: INR 1.33; PARTIAL THROMBOPLASTIN TIME 32.7 Sec (25.0-35.0); PROTIME 16.6 Sec (12.2-14.2); PT RATIO 1.3
[2017-04-10 05:44] LABS: BILIRUBIN,DIRECT 3.4 mg/dl (0.00-0.20); BILIRUBIN,TOTAL 5.4 mg/dl (0.2-1.3); CALCIUM 8.5 mg/dl (8.4-10.2); CREATININE 0.71 mg/dl (0.44-1.00); POTASSIUM 4.6 mmol/L (3.5-5.1)
[2017-04-10 06:16] LABS: ADD SCAN DIFF NO
[2017-04-10 08:08] VITALS: BP 124/58; RESP 18
[2017-04-10] MEDS ORDERED: PHYTONADIONE 10 MG/ML INJ SC ONE (09:30)
[2017-04-10] MEDS ORDERED: PHYTONADIONE (1 MG/ML PO SYG) PO ONE (10:00)
[2017-04-10 13:12] LABS: INR 1.26; PROTIME 15.9 Sec (12.2-14.2); PT RATIO 1.2
[2017-04-10] MEDS ORDERED: DEXTROSE 5%-0.45% NACL 1,000 ML IV SCH (15:30)
[2017-04-10] MEDS: DEXTROSE 5%-0.45% NACL 500 ML IV SCH (16:06)
--- NOTE | 2017-04-10 19:10 | CONS ---
Date/Time of Note Date/Time of Note DATE: 04/10/17 TIME: 19:09 Assessment/Plan Assessment/Plan Chief Complaint/Hosp Course 81-year-old female with a history of hyperlipidemia on statin admitted to the hospital for vague abdominal discomfort. No nausea no vomiting no GI bleeding. No chest pain or shortness of breath no fever. No history of hepatitis in the past no history of weight loss. Problems: Additional Assessment/Plan Additional Assessment/Plan Additional Assessment/Plan 1. Abnormal liver function test secondary to cirrhosis of liver the cause needs to be determined 2. Hyperlipidemia 3. Epigastric pain 4. Elevated CA 19 9 Plan We will send the blood tests for chronic liver disease Patient may need EGD for epigastric pain and also look for the varicose vein in the esophagus. Discussed with the patient and has agreed for the Lipitor needs to be stopped because of high SGOT and SGPT I reviewed her hepatitis panel both hep B and hep C both are negative Patient will need pancreatic protocol CT scan and if negative then monitor CA 199 periodically. Patient might benefit from EUS Liver biopsy is pending CEA level is within normal limit Consultation Date/Type/Reason Admit Date/Time Apr 07, 2017 at 13:49 24 HR Interval Summary Constitutional: improved Exam/Review of Systems Vital Signs Vitals Vital Signs Date Time Temp Pulse Resp B/P Pulse Ox O2 Delivery O2 Flow Rate FiO2 04/10/17 08:08 98.4 58 18 124/58 96 04/09/17 14:11 Nasal Cannula 2.0 Intake and Output 04/09/17 04/09/17 04/10/17 15:00 23:00 07:00 Intake Total 150 ml 550 ml 600 ml Balance 150 ml 550 ml 600 ml Exam Constitutional: alert, oriented, well developed Psych: nl mood/affect, no complaints Head: atraumatic, normocephalic Eyes: EOMI, PERRL, nl conjunctiva, nl lids, nl sclera ENMT: nl external ears & nose, nl lips & teeth, nl nasal mucosa & septum Neck: non-tender, supple Respiratory: clear to auscultation, normal air movement Cardiovascular: nl pulses, regular rate and rhythm Gastrointestinal: nl liver, spleen, non-tender, soft Musculoskeletal: nl extremities to inspection, nl gait and stance Extremities: normal pulses Neurological: ELEVATOR REPAIRER APPRENTICE II-XII intact, nl mental status, nl speech, nl strength Skin: nl turgor, No rash or lesions Lymph: nl lymph nodes Results Result Diagram: 04/10/17 0455 04/10/17 0455 Results 24 hrs Laboratory Tests Test 04/10/17 04:55 04/10/17 12:42 White Blood Count 6.0 Red Blood Count 3.75 L Hemoglobin 13.0 Hematocrit 36.8 L Mean Corpuscular Volume 98.1 Mean Corpuscular Hemoglobin 34.7 H Mean Corpuscular Hemoglobin Concent 35.3 Red Cell Distribution Width 19.0 H Platelet Count 78 L Mean Platelet Volume 13.3 H Neutrophils % 47.3 Lymphocytes % 33.2 Monocytes % 13.4 H Eosinophils % 5.2 Basophils % 0.7 Nucleated Red Blood Cells % 0.0 Neutrophils # 2.8 Lymphocytes # 2.0 Monocytes # 0.8 Eosinophils # 0.3 Basophils # 0.0 Nucleated Red Blood Cells # 0.0 Prothrombin Time 16.6 H 15.9 H Prothrombin Time Ratio 1.3 1.2 INR International Normalized Ratio 1.33 1.26 Activated Partial Thromboplast Time 32.7 Sodium Level 141 Potassium Level 4.6 Chloride Level 109 Carbon Dioxide Level 28 Anion Gap 9 # Blood Urea Nitrogen 10 Creatinine 0.71 Glucose Level 90 Calcium Level 8.5 Total Bilirubin 5.4 H Direct Bilirubin 3.40 H Indirect Bilirubin 2.0 H Aspartate Amino Transf (AST/SGOT) 803 H Alanine Aminotransferase (ALT/SGPT) 1293 H Alkaline Phosphatase 291 H Total Protein 6.0 L Albumin 3.0 L Globulin 3.00 Albumin/Globulin Ratio 1.00 Carcinoembryonic Antigen 1.1 Medications Medications Current Medications Ondansetron HCl (Zofran Inj) 4 mg Q6H PRN IV NAUSEA AND/OR VOMITING; Start at 08:30 Pantoprazole (Protonix Tab) 40 mg DAILY@06 PO Last administered on 04/10/17 05 :24; Admin Dose 40 MG; Start 04/08/17 at 08:30 Tramadol HCl 50 mg 50 mg Q6H PRN PO PAIN LEVEL 7-10 Last administered on 00:30; Admin Dose 50 MG; Start 04/08/17 at 08:30 Ceftriaxone Sodium 50 ml @ 100 mls/hr Q24H IVPB Last administered on 20:44; Admin Dose 100 MLS/HR; Start 04/08/17 at 20:00 Dextrose/Sodium Chloride (D5-1/2ns) 500 ml @ 50 mls/hr Q10H IV Last administered on 04/10/17t 16:06; Admin Dose 50 MLS/HR; Start 04/10/17 at 16:00 ARCELIA OGINS MD Apr 10, 2017 19:09
[2017-04-10 20:10] VITALS: BP 136/62; RESP 22
[2017-04-10] MEDS: CEFTRIAXONE 1 GM/50 ML (PMX) 50 ML IVPB SCH (21:51)
[2017-04-11] MEDS: DEXTROSE 5%-0.45% NACL 500 ML IV SCH ×3 (01:04→22:38)
[2017-04-11] MEDS: PANTOPRAZOLE (EC) 40 MG TAB PO SCH (05:45)
[2017-04-11 08:26] VITALS: BP 114/56; RESP 20
[2017-04-11] MEDS ORDERED: GUAIFENESIN 20 MG/ML 5ML CUP PO PRN (16:30)
[2017-04-11 19:54] VITALS: BP 131/63; RESP 20
[2017-04-11] MEDS: CEFTRIAXONE 1 GM/50 ML (PMX) 50 ML IVPB SCH (20:37)
--- NOTE | 2017-04-11 22:05 | CONS ---
Date/Time of Note Date/Time of Note DATE: 04/11/17 TIME: 22:00 Assessment/Plan Assessment/Plan Chief Complaint/Hosp Course Impression: 1. Abnormal liver function test secondary to cirrhosis of liver: transaminases improving, viral hepatitis negative, autoimmune negatie so far. 2. Hyperlipidemia 3. 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 Elevated CA 19 9 5. Severe gastritis 6. 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 Plan 1. stop drugs that can be toxic to liver for now, eg lipitor 2. monitor CA 199 periodically. 3. f/u Liver biopsy Problems: Consultation Date/Type/Reason Admit Date/Time Apr 07, 2017 at 13:49 Initial Consult Date Type of Consultation: GI 24 HR Interval Summary Constitutional: improved Exam/Review of Systems Vital Signs Vitals Vital Signs Date Time Temp Pulse Resp B/P Pulse Ox O2 Delivery O2 Flow Rate FiO2 04/11/17 19:54 98.9 63 20 131/63 97 04/09/17 14:11 Nasal Cannula 2.0 Intake and Output 04/10/17 04/10/17 04/11/17 15:00 23:00 07:00 Intake Total 600 ml 800 ml Balance 600 ml 800 ml Exam Constitutional: alert Psych: nl mood/affect, no complaints Head: atraumatic, normocephalic Eyes: EOMI, nl conjunctiva, nl lids ENMT: nl external ears & nose, nl lips & teeth, nl nasal mucosa & septum Neck: non-tender, supple Respiratory: clear to auscultation, normal air movement Cardiovascular: nl pulses, regular rate and rhythm Gastrointestinal: bowel sounds, non-tender, soft Results Result Diagram: 04/10/17 0455 04/10/17 0455 Results 24 hrs Laboratory Tests Test 04/11/17 14:50 Stool Occult Blood NEGATIVE Medications Medications Current Medications Ondansetron HCl (Zofran Inj) 4 mg Q6H PRN IV NAUSEA AND/OR VOMITING; Start at 08:30 Pantoprazole (Protonix Tab) 40 mg DAILY@06 PO Last administered on 04/11/17 05: 45; Admin Dose 40 MG; Start 04/08/17 at 08:30 Tramadol HCl 50 mg 50 mg Q6H PRN PO PAIN LEVEL 7-10 Last administered on 00:30; Admin Dose 50 MG; Start 04/08/17 at 08:30 Ceftriaxone Sodium 50 ml @ 100 mls/hr Q24H IVPB Last administered on 04/11/17 20:37; Admin Dose 100 MLS/HR; Start 04/08/17 at 20:00 Dextrose/Sodium Chloride (D5-1/2ns) 500 ml @ 50 mls/hr Q10H IV Last administered on 04/11/17 12:37; Admin Dose 50 MLS/HR; Start 04/10/17 at 16:00 Guaifenesin (Robitussin Liquid Cup) 100 mg Q4H PRN PO COUGH; Start 04/11/17 at 16:30 MANINDER CORTEZ MD Apr 11, 2017 22:05
--- NOTE | 2017-04-12 00:41 | RADRPT ---
PROCEDURE: XR Chest. CLINICAL INDICATION: Cough. TECHNIQUE: PA and lateral chest x-ray. COMPARISON: None. FINDINGS: The cardiomediastinal silhouette is unremarkable. There is no congestive heart failure. There is no focal infiltrate. There is no pleural effusion. There is no pneumothorax there degenerate appiah ges of the thoracic spine.. IMPRESSION: No CHF or infiltrate. RPTAT: HMVK .Reji Elizalde MD, MD Date Time Electronically viewed and signed by .Reji Elizalde MD, on 04/12/2017 00:41 .K/
[2017-04-12] MEDS: traMADol 50 MG TAB PO PRN (02:36)
[2017-04-12] MEDS: PANTOPRAZOLE (EC) 40 MG TAB PO SCH (05:15)
[2017-04-12 06:03] LABS: INR 1.24; PROTIME 15.7 Sec (12.2-14.2); PT RATIO 1.2
[2017-04-12 06:29] LABS: ALBUMIN 2.9 g/dl (3.3-4.9); BILIRUBIN,DIRECT 1.7 mg/dl (0.00-0.20); BILIRUBIN,INDIRECT 1.5 mg/dl (0-1.1); BILIRUBIN,TOTAL 3.2 mg/dl (0.2-1.3); CALCIUM 8.6 mg/dl (8.4-10.2); CREATININE 0.67 mg/dl (0.44-1.00); POTASSIUM 4.3 mmol/L (3.5-5.1); TOTAL PROTEIN 5.8 g/dl (6.1-8.1)
[2017-04-12 07:28] VITALS: BP 126/58; RESP 20
[2017-04-12] MEDS: DEXTROSE 5%-0.45% NACL 500 ML IV SCH ×2 (08:17→18:22)
[2017-04-12 09:30] LABS: ABNORMAL IP MESSAGE 1; BASOPHIL # 0.1 10^3/ul (0.0-0.1); EOSINOPHILS # 0.2 10^3/ul (0.0-0.5); EOSINOPHILS % 4.2 % (0.0-7.0); HEMATOCRIT 38.3 % (37.0-47.0); HEMOGLOBIN 13.1 g/dl (12.0-16.0); LYMPHOCYTES # 1.4 10^3/ul (0.8-2.9); LYMPHOCYTES % 28.5 % (15.0-51.0); MONOCYTE # 0.7 10^3/ul (0.3-0.9); MONOCYTES % 14.3 % (0.0-11.0); NEUTROPHIL # 2.6 10^3/ul (1.6-7.5); NEUTROPHILS % 51.2 % (39.0-77.0); RED BLOOD COUNT 3.92 10^6/ul (4.20-5.40)
[2017-04-12 09:39] LABS: MEAN CORPUSCULAR HEMOGLOBIN 33.8 pg (29.0-33.0); MEAN CORPUSCULAR HGB CONC 34.4 g/dl (32.0-37.0); MEAN CORPUSCULAR VOLUME 98.2 fl (82.0-101.0); MEAN PLATELET VOLUME 12.9 fl (7.4-10.4)
[2017-04-12 09:40] LABS: PLATELET COUNT 51 10^3/UL (140-415)
[2017-04-12 09:42] LABS: ADD SCAN DIFF NO
--- NOTE | 2017-04-12 11:16 | CONS ---
Date/Time of Note Date/Time of Note DATE: 04/12/17 TIME: 11:13 Assessment/Plan Assessment/Plan Chief Complaint/Hosp Course Impression: 1. Abnormal liver function test secondary to cirrhosis of liver: transaminases improving, viral hepatitis negative, autoimmune negatie so far. 2. Hyperlipidemia 3. 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 Elevated CA 19 9 5. Severe gastritis 6. 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 Plan 1. stop drugs that can be toxic to liver for now, eg lipitor 2. monitor CA 199 periodically. 3. f/u Liver biopsy 4. ok for pt to dc tomorrow from GI perspective if lft continues to improve and if ok with primary and other consultants. Problems: Consultation Date/Type/Reason Admit Date/Time Apr 07, 2017 at 13:49 Type of Consultation: GI 24 HR Interval Summary Free Text/Dictation mild abdominal pain last night, no abdominal pain this AM. Tolerating PO, no n/v Constitutional: improved Exam/Review of Systems Vital Signs Vitals Vital Signs Date Time Temp Pulse Resp B/P Pulse Ox O2 Delivery O2 Flow Rate FiO2 04/12/17 07:28 97.8 63 20 126/58 97 04/09/17 14:11 Nasal Cannula 2.0 Intake and Output 04/11/17 04/11/17 04/12/17 15:00 23:00 07:00 Intake Total 250 ml 1845 ml 1200 ml Balance 250 ml 1845 ml 1200 ml Exam Constitutional: alert, oriented, well developed Psych: nl mood/affect, no complaints Head: atraumatic, normocephalic Eyes: EOMI, nl conjunctiva, nl lids ENMT: nl external ears & nose, nl lips & teeth, nl nasal mucosa & septum Neck: non-tender, supple Respiratory: clear to auscultation, normal air movement Cardiovascular: nl pulses, regular rate and rhythm Gastrointestinal: bowel sounds, non-tender, soft Results Result Diagram: 04/12/175 04/12/175 Results 24 hrs Laboratory Tests Test 04/11/17 14:50 04/12/17 04:45 Stool Occult Blood NEGATIVE White Blood Count 5.0 Red Blood Count 3.92 L Hemoglobin 13.1 Hematocrit 38.3 Mean Corpuscular Volume 98.2 Mean Corpuscular Hemoglobin 33.8 H Mean Corpuscular Hemoglobin Concent 34.4 Red Cell Distribution Width 18.0 H Platelet Count 51 #L Mean Platelet Volume 12.9 H Neutrophils % 51.2 Lymphocytes % 28.5 Monocytes % 14.3 H Eosinophils % 4.2 Basophils % 1.0 Nucleated Red Blood Cells % 0.0 Neutrophils # 2.6 Lymphocytes # 1.4 Monocytes # 0.7 Eosinophils # 0.2 Basophils # 0.1 Nucleated Red Blood Cells # 0.0 Prothrombin Time 15.7 H Prothrombin Time Ratio 1.2 INR International Normalized Ratio 1.24 Activated Partial Thromboplast Time 33.0 Sodium Level 143 Potassium Level 4.3 Chloride Level 105 Carbon Dioxide Level 26 Anion Gap 16 # Blood Urea Nitrogen 9 Creatinine 0.67 Glucose Level 103 Calcium Level 8.6 Total Bilirubin 3.2 #H Direct Bilirubin 1.70 #H Indirect Bilirubin 1.5 H Aspartate Amino Transf (AST/SGOT) 794 H Alanine Aminotransferase (ALT/SGPT) 1163 H Alkaline Phosphatase 300 H Total Protein 5.8 L Albumin 2.9 L Globulin 2.90 Albumin/Globulin Ratio 1.00 Medications Medications Current Medications Ondansetron HCl (Zofran Inj) 4 mg Q6H PRN IV NAUSEA AND/OR VOMITING; Start at 08:30 Pantoprazole (Protonix Tab) 40 mg DAILY@06 PO Last administered on 04/12/17 05: 15; Admin Dose 40 MG; Start 04/08/17 at 08:30 Tramadol HCl 50 mg 50 mg Q6H PRN PO PAIN LEVEL 7-10 Last administered on 02:36; Admin Dose 50 MG; Start 04/08/17 at 08:30 Ceftriaxone Sodium 50 ml @ 100 mls/hr Q24H IVPB Last administered on 04/11/17 20:37; Admin Dose 100 MLS/HR; Start 04/08/17 at 20:00 Dextrose/Sodium Chloride (D5-1/2ns) 500 ml @ 50 mls/hr Q10H IV Last administered on 04/12/17 08:17; Admin Dose 50 MLS/HR; Start 04/10/17 at 16:00 Guaifenesin (Robitussin Liquid Cup) 100 mg Q4H PRN PO COUGH; Start 04/11/17 at 16:30 MANINDER CORTEZ MD Apr 12, 2017 11:15
[2017-04-12] MEDS ORDERED: PHYTONADIONE 10 MG/ML INJ SC ONE (18:00)
[2017-04-12 19:03] VITALS: BP 115/58; RESP 18
[2017-04-12] MEDS: PHYTONADIONE (1 MG/ML PO SYG) PO SCH (20:25)
[2017-04-12] MEDS: CEFTRIAXONE 1 GM/50 ML (PMX) 50 ML IVPB SCH (20:30)
[2017-04-13] VITALS (8 sets, daily range): BP systolic 125–148; BP diastolic 59–65; PULSE 47–62; RESP 18–19
[2017-04-13] MEDS: DEXTROSE 5%-0.45% NACL 500 ML IV SCH ×3 (05:19→17:26)
[2017-04-13] MEDS: PANTOPRAZOLE (EC) 40 MG TAB PO SCH (05:24)
[2017-04-13 05:55] LABS: INR 1.23; PROTIME 15.6 Sec (12.2-14.2); PT RATIO 1.2
[2017-04-13 06:11] LABS: POTASSIUM 3.8 mmol/L (3.5-5.1)
[2017-04-13 06:12] LABS: ALBUMIN 3.2 g/dl (3.3-4.9); ALBUMIN/GLOBULIN RATIO 1.06; BILIRUBIN,DIRECT 1.2 mg/dl (0.00-0.20); BILIRUBIN,INDIRECT 1.6 mg/dl (0-1.1); BILIRUBIN,TOTAL 2.8 mg/dl (0.2-1.3); CALCIUM 8.7 mg/dl (8.4-10.2); TOTAL PROTEIN 6.2 g/dl (6.1-8.1)
[2017-04-13 06:13] LABS: CREATININE 0.7 mg/dl (0.44-1.00)
[2017-04-13 07:21] LABS: ABNORMAL IP MESSAGE 1; BASOPHILS % 0.8 % (0.0-2.0); EOSINOPHILS # 0.2 10^3/ul (0.0-0.5); EOSINOPHILS % 4.6 % (0.0-7.0); HEMOGLOBIN 13.2 g/dl (12.0-16.0); LYMPHOCYTES # 1.7 10^3/ul (0.8-2.9); LYMPHOCYTES % 32.9 % (15.0-51.0); MEAN CORPUSCULAR HEMOGLOBIN 33.4 pg (29.0-33.0); MEAN CORPUSCULAR HGB CONC 34.1 g/dl (32.0-37.0); MONOCYTE # 0.5 10^3/ul (0.3-0.9); MONOCYTES % 10.6 % (0.0-11.0); NEUTROPHIL # 2.6 10^3/ul (1.6-7.5); NEUTROPHILS % 50.9 % (39.0-77.0); RED BLOOD COUNT 3.95 10^6/ul (4.20-5.40)
[2017-04-13 07:25] LABS: PLATELET COUNT 65 10^3/UL (140-415)
[2017-04-13 07:26] LABS: HEMATOCRIT 38.7 % (37.0-47.0)
[2017-04-13] MEDS: PHYTONADIONE (1 MG/ML PO SYG) PO SCH (08:27)
[2017-04-13] MEDS ORDERED: LIDOCAINE 1% (MPF) 5 ML VIAL ONE (15:42)
--- NOTE | 2017-04-13 16:03 | RADRPT ---
PROCEDURE: Ultrasound guided liver biopsy. CLINICAL INDICATION: Diffuse liver disease. TECHNIQUE: Informed consent was obtained. The procedure, risks, benefits, complications and alternatives were explained to the patient. Risks including bleeding and infection were explained. The patient unders tood and was willing to proceed. A procedural pause was performed. The patient's name, date of , and procedure to be performed w ere verified. Using local anesthetic, sterile technique and ultrasound guidance, an 18-gauge automated core biopsy needle was used to biopsy the right hepatic lobe. Two passes were made. Adequate tissue was obtain ed. A dressing was applied. The patient tolerated procedure well. COMPARISON: None. FINDINGS: Ultrasound imaging demonstrates the liver to be 2.0 cm deep to the skin. Ultrasound guidance was use d for the liver biopsy. IMPRESSION: 1. Successful ultrasound guided liver biopsy. RPTAT: QQ .Rd Guthrie MD, Date Time Electronically viewed and signed by .Rd Guthrie MD, on 04/13/2017 16:03 .R/
[2017-04-13] MEDS: CEFTRIAXONE 1 GM/50 ML (PMX) 50 ML IVPB SCH (19:54)
--- NOTE | 2017-04-13 20:13 | CONS ---
Date/Time of Note Date/Time of Note jogDATE: 04/13/17 TIME: 19:18 Assessment/Plan Assessment/Plan Problems: (1) Thrombocytopenia Status: Acute (2) Cholestatic jaundice Status: Acute (3) Hepatitis Status: Acute Additional Assessment/Plan Pt is 81 y/o female with recent discovery of jaundice. Pt has mildly elevated alk phos and markedly elevated transaminases. Imaging suggests cirrhosis with mild splenomegaly. No hepatic masses or biliary ductal dilatation. No obvious signs. portal hypertension. Viral hepatitis serologies are neg. AFP and CA 19- 9 are mildly elevated. 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 There is no obvious autoimmune component. The elevation of the AFP and CA 19- 9 can be seen with sclerosing cholangitis or any inflammatory or cirrhotic condition. AFP associated with primary hepatocellular CA is usually >20. Pt has had a liver bx today which will hopefully reveal the dx. Pt also has a mild thrombocytopenia. MPV is increased. This suggests large platelets consistent with a young population due to peripheral destruction. This may be on the basis of antibody production and , less likely, splenic sequestration. Pt has been on ceftriaxone which may be associated with thrombocytopenia, but the platelets were already decreased on admission--prior to the start of the ceftriaxone. Will review the peripheral smear. Will request a platelet antibody panel. Other studies requested include SPEP, immunofixation, quantitative immunoglobulins and IgG subclasses. IgG4 is often associated with sclerosing cholangitis. This may also be seen on immunohistochemical studies done on the liver bx. Coagulation studies have been nl and I feel that DIC is unlikely but will request a fibrinogen and D-Dimer. Consultation Date/Type/Reason Admit Date/Time Apr 07, 2017 at 13:49 Date of Consultation: Apr 13, 2017 Type of Consultation: Hematology/Oncology Reason for Consultation Possible hepatic malignancy Referring Provider: GREG PIÑA MD Hx of Present Illness 81 y/o femlae who has been in good health except for hyperlipidemia. Pt began to experience diarrhea ~ 1 month ago. Resolved spontaneously and pt then developed some epigastric discomfort. This was not affected by po intake. Not associated with N/V but did experience mild anorexia. Has lost ~ 8-10 lbs in past 2 weeks. Pt was then noted by fellow workers to be icteric. At same time the patient noted light colored stools and dark urine. Pt did not have any other systemic symptoms. She had no fevers or chills. No night sweats. No c/o chest pain, cough or SOB. Because of these symptoms pt was admitted to hospital on 04/06. WBC 5,600 (ANC 3 ,000), Hgb 15.2, Hct 43.7, Plt 100,000, MPV 13.1. Today WBC 5,000 (ANC 2,600), Hgb 13.2 Hct 38.7, Plt 65,000, MPV 14.0. On admit T/D Bili 5.6/3.6, AST 1344, ALT 1940, Alk Phos 303, T.P. 6.4, Alb 3.5 , AFP 14.50, CA 19-9 268, CEA 1.1. Today T/D Bili 2.8/1.2, AST 734, ALT 1034, Alk Phos 292. Hepatitis serologies for hepatitis A,B and C are neg. RICHARD , Smooth muscle Ab ,Anti mitochondrial Ab, and Microsomal Ab are all negative. PT 15.6 sec/ INR 1.23, PTT 33 sec. Urine C&S-->100,000 col of E Coli. Has been on ceftriaxone. MRI of Abd demonstrates a nodular hepatic surface and borderline splenomegaly. No hepatic lesions. No biliary duct dilatation. CT of abd dose not demonstrate biliary ductal dil or hepatic masses. No intra-abd lymphadenopathy. Pt has not had any evidence of hepatic dysfunction in the past. Did have a lap cholecystectomy ~ 10 yrs ago. Had prolonged post op abd pain but there was no mention of hepatic abn being seen at time of surgery. Pt has no hx of any hematologic abn in past. No unusual bruising or bleeding. Never been told of thrombocytopenia in the past. Only meds as OP has been atorvastatin 40 mg daily and ASA 81 mg daily. Pt has never been a smoker and consumes alcohol minimally. No family hx of any liver disease. Only symptoms include the vague epigastric discomfort, acholic stools and cark urine. Pt has had mild fatigue but has continued working and all usual daily activities. Constitutional: improved Psychological: nl mood/affect, no complaints Past Medical History Medical History: high cholesterol Past Surgical History Past Surgical Hx: cholecystectomy Family History Significant Family History: heart disease Social History Alcohol Use: rarely Smoking Status: Never smoker Drug Use: none Other Social History . Is an RN. Operates a nursing agency. No known exposures to industrial toxins or ionizing radiation. Exam/Review of Systems Vital Signs Vitals Vital Signs Date Time Temp Pulse Resp B/P Pulse Ox O2 Delivery O2 Flow Rate FiO2 04/13/17 17:25 62 140/64 04/13/17 13:50 98.3 04/13/17 07:54 19 98 04/09/17 14:11 Nasal Cannula 2.0 Intake and Output 04/12/17 04/12/17 04/13/17 15:00 23:00 07:00 Intake Total 1570 ml 950 ml Balance 1570 ml 950 ml Exam Constitutional: alert, oriented, well developed Psych: nl mood/affect Head: atraumatic, normocephalic Eyes: EOMI, PERRL, icteric, nl conjunctiva ENMT: mucosa pink and moist, nl lips & teeth Neck: non-tender, supple Respiratory: clear to auscultation, normal air movement Cardiovascular: nl pulses, regular rate and rhythm Gastrointestinal: nl liver, spleen, non-tender, soft Musculoskeletal: nl extremities to inspection Extremities: normal pulses Neurological: L[employer]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 II-XII intact, nl mental status, nl speech, nl strength Skin: nl turgor, rash or lesions Lymph: nl lymph nodes Results Result Diagram: 04/13/17 0440 04/13/17 0440 Results 24 hrs Laboratory Tests Test 04/13/17 04:40 White Blood Count 5.0 Red Blood Count 3.95 L Hemoglobin 13.2 Hematocrit 38.7 Mean Corpuscular Volume 98.0 Mean Corpuscular Hemoglobin 33.4 H Mean Corpuscular Hemoglobin Concent 34.1 Red Cell Distribution Width 18.0 H Platelet Count 65 #L Mean Platelet Volume 14.0 H Neutrophils % 50.9 Lymphocytes % 32.9 Monocytes % 10.6 Eosinophils % 4.6 Basophils % 0.8 Nucleated Red Blood Cells % 0.0 Neutrophils # 2.6 Lymphocytes # 1.7 Monocytes # 0.5 Eosinophils # 0.2 Basophils # 0.0 Nucleated Red Blood Cells # 0.0 Prothrombin Time 15.6 H Prothrombin Time Ratio 1.2 INR International Normalized Ratio 1.23 Sodium Level 142 Potassium Level 3.8 Chloride Level 109 Carbon Dioxide Level 26 Anion Gap 11 Blood Urea Nitrogen 8 Creatinine 0.70 Glucose Level 97 Calcium Level 8.7 Total Bilirubin 2.8 H Direct Bilirubin 1.20 #H Indirect Bilirubin 1.6 H Aspartate Amino Transf (AST/SGOT) 734 H Alanine Aminotransferase (ALT/SGPT) 1054 H Alkaline Phosphatase 292 H Total Protein 6.2 Albumin 3.2 L Globulin 3.00 Albumin/Globulin Ratio 1.06 Medications Medications Current Medications Ondansetron HCl (Zofran Inj) 4 mg Q6H PRN IV NAUSEA AND/OR VOMITING; Start at 08:30 Pantoprazole (Protonix Tab) 40 mg DAILY@06 PO Last administered on 04/13/17 05: 24; Admin Dose 40 MG; Start 04/08/17 at 08:30 Tramadol HCl 50 mg 50 mg Q6H PRN PO PAIN LEVEL 7-10 Last administered on 02:36; Admin Dose 50 MG; Start 04/08/17 at 08:30 Ceftriaxone Sodium 50 ml @ 100 mls/hr Q24H IVPB Last administered on 04/12/17 20:30; Admin Dose 100 MLS/HR; Start 04/08/17 at 20:00 Dextrose/Sodium Chloride (D5-1/2ns) 500 ml @ 50 mls/hr Q10H IV Last administered on 04/13/17 17:26; Admin Dose 50 MLS/HR; Start 04/10/17 at 16:00 Guaifenesin (Robitussin Liquid Cup) 100 mg Q4H PRN PO COUGH; Start 04/11/17 at 16:30 Phytonadione (Vitamin K Soln) 10 mg DAILY PO Last administered on 04/13/17 08: 27; Admin Dose 10 MG; Start 04/12/17 at 18:00 Copies To: CC: ARCELIA GOISN MD; GREG PIÑA MD; RY GUEVARA MD, STANLEY H MD Apr 13, 2017 19:45
[2017-04-14] MEDS: traMADol 50 MG TAB PO PRN (01:32)
[2017-04-14] MEDS: PANTOPRAZOLE (EC) 40 MG TAB PO SCH (05:20)
[2017-04-14 05:52] LABS: INR 1.14; PROTIME 14.6 Sec (12.2-14.2); PT RATIO 1.1
[2017-04-14 06:26] LABS: ALBUMIN 3.2 g/dl (3.3-4.9); BILIRUBIN,DIRECT 0.8 mg/dl (0.00-0.20); BILIRUBIN,INDIRECT 1.4 mg/dl (0-1.1); BILIRUBIN,TOTAL 2.2 mg/dl (0.2-1.3); CREATININE 0.62 mg/dl (0.44-1.00); POTASSIUM 3.8 mmol/L (3.5-5.1); TOTAL PROTEIN 6.4 g/dl (6.1-8.1)
[2017-04-14 07:17] LABS: PARTIAL THROMBOPLASTIN TIME 32.6 Sec (25.0-35.0)
[2017-04-14 07:19] LABS: D-DIMER 991.22 ng/ml (<460)
[2017-04-14 07:21] LABS: ADD SCAN DIFF NO
[2017-04-14 07:33] LABS: ABNORMAL IP MESSAGE 1; BASOPHIL # 0.1 10^3/ul (0.0-0.1); EOSINOPHILS # 0.2 10^3/ul (0.0-0.5); EOSINOPHILS % 4.7 % (0.0-7.0); HEMATOCRIT 33.8 % (37.0-47.0); HEMOGLOBIN 12.7 g/dl (12.0-16.0); LYMPHOCYTES # 1.8 10^3/ul (0.8-2.9); LYMPHOCYTES % 36.8 % (15.0-51.0); MEAN CORPUSCULAR HEMOGLOBIN 38.3 pg (29.0-33.0); MEAN CORPUSCULAR VOLUME 101.8 fl (82.0-101.0); MEAN PLATELET VOLUME 13.2 fl (7.4-10.4); MONOCYTE # 0.7 10^3/ul (0.3-0.9); MONOCYTES % 13.3 % (0.0-11.0); NEUTROPHIL # 2.1 10^3/ul (1.6-7.5); NEUTROPHILS % 43.8 % (39.0-77.0); PLATELET COUNT 84 10^3/UL (140-415); RED BLOOD COUNT 3.32 10^6/ul (4.20-5.40); RED CELL DISTRIBUTION WIDTH 20.5 % (11.5-14.5); WHITE BLOOD COUNT 4.9 10^3/ul (4.8-10.8)
[2017-04-14 07:34] LABS: MEAN CORPUSCULAR HGB CONC 37.6 g/dl (32.0-37.0)
[2017-04-14 07:59] LABS: INR 1.12; PROTIME 14.4 Sec (12.2-14.2); PT RATIO 1.1
[2017-04-14] MEDS: DEXTROSE 5%-0.45% NACL 500 ML IV SCH (08:34)
[2017-04-14] MEDS: PHYTONADIONE (1 MG/ML PO SYG) PO SCH (08:34)
[2017-04-14 08:49] VITALS: BP 151/67; RESP 19
[2017-04-14 12:12] LABS: IMMUNOGLOBULIN A 335 mg/dl (70-400); IMMUNOGLOBULIN G 1088 mg/dl (700-1600)
[2017-04-14 12:34] LABS: IMMUNOGLOBULIN M 509 mg/dl (40-230)
--- NOTE | 2017-04-14 15:50 | CONS ---
Date/Time of Note Date/Time of Note DATE: 04/14/17 TIME: 15:49 Assessment/Plan Assessment/Plan Chief Complaint/Hosp Course Impression: 1. Abnormal liver function test secondary to cirrhosis of liver: transaminases improving, viral hepatitis negative, autoimmune negatie so far. 2. Hyperlipidemia 3. 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 Elevated CA 19 9 5. Severe gastritis 6. 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 Plan 1. stop drugs that can be toxic to liver for now, eg lipitor 2. monitor CA 199 periodically. 3. f/u Liver biopsy 4. ok for pt to dc from GI perspective if lft continues to improve and if ok with primary and other consultants. Problems: Consultation Date/Type/Reason Admit Date/Time Apr 07, 2017 at 13:49 Type of Consultation: GI Referring Provider: GREG PIÑA MD 24 HR Interval Summary Free Text/Dictation no n/v, wants to go home Exam/Review of Systems Vital Signs Vitals Vital Signs Date Time Temp Pulse Resp B/P Pulse Ox O2 Delivery O2 Flow Rate FiO2 04/14/17 08:49 98.0 56 19 151/67 99 Intake and Output 04/13/17 04/13/17 04/14/17 15:00 23:00 07:00 Intake Total 300 ml 290 ml 1080 ml Balance 300 ml 290 ml 1080 ml Exam Constitutional: alert, oriented, well developed Psych: nl mood/affect, no complaints Head: atraumatic, normocephalic Eyes: EOMI, nl conjunctiva, nl lids ENMT: nl external ears & nose, nl lips & teeth, nl nasal mucosa & septum Neck: non-tender, supple Respiratory: clear to auscultation, normal air movement Cardiovascular: nl pulses, regular rate and rhythm Gastrointestinal: bowel sounds, non-tender, soft Results Result Diagram: 04/14/17 0716 04/14/17 0457 Results 24 hrs Laboratory Tests Test 04/14/17 04:57 04/14/17 07:16 04/14/17 08:14 Prothrombin Time 14.4 H Prothrombin Time Ratio 1.1 INR International Normalized Ratio 1.12 Activated Partial Thromboplast Time 32.6 Fibrinogen 284.0 D-Dimer 991.22 H D-Dimer Comment Sodium Level 144 Potassium Level 3.8 Chloride Level 105 Carbon Dioxide Level 26 Anion Gap 17 H Blood Urea Nitrogen 9 Creatinine 0.62 Glucose Level 92 Calcium Level 9.0 Total Bilirubin 2.2 H Direct Bilirubin 0.80 #H Indirect Bilirubin 1.4 H Aspartate Amino Transf (AST/SGOT) 715 H Alanine Aminotransferase (ALT/SGPT) 916 H Alkaline Phosphatase 301 H Total Protein 6.4 Albumin 3.2 L Globulin 3.20 Albumin/Globulin Ratio 1.00 Immunoglobulin A 335 Immunoglobulin G 1088 Immunoglobulin M 509 H White Blood Count 4.9 Red Blood Count 3.32 L Hemoglobin 12.7 Hematocrit 33.8 L Mean Corpuscular Volume 101.8 H Mean Corpuscular Hemoglobin 38.3 H Mean Corpuscular Hemoglobin Concent 37.6 H Red Cell Distribution Width 20.5 H Platelet Count 84 #L Mean Platelet Volume 13.2 H Neutrophils % 43.8 Lymphocytes % 36.8 Monocytes % 13.3 H Eosinophils % 4.7 Basophils % 1.0 Nucleated Red Blood Cells % 0.0 Neutrophils # 2.1 Lymphocytes # 1.8 Monocytes # 0.7 Eosinophils # 0.2 Basophils # 0.1 Nucleated Red Blood Cells # 0.0 Lab Scanned Report BLOOD TRANSFUSION MANINDER CORTEZ MD Apr 14, 2017 15:49
[2017-04-15 13:11] LABS: PROTEIN, TOTAL 5.6 g/dL (6.1-8.1)
[2017-04-16 15:22] LABS: ABNORMAL PROTEIN BAND 1 0.2 g/dL (NONE DETECTED); ALBUMIN 2.8 g/dL (3.8-4.8)
[2017-04-16 17:23] LABS: PLATELET ANTIBODY - IGA POSITIVE (NEGATIVE); PLATELET ANTIBODY - IGG POSITIVE (NEGATIVE); PLATELET ANTIBODY - IGM POSITIVE (NEGATIVE)
== END 2017-04-14 15:40 | disposition home or self-care (01) | DRG 444 ==
LOC: E/R 15:09 → MS1 21:53 → OBSVTOIN 04-07 13:49
PROVIDERS: ADMIT Internal Medicine; ATTEND Internal Medicine
PROC: 0DB68ZX Excision of Stomach, Via Natural or Artificial Opening Endoscopic, Diagnostic (ICD-10-PCS; 2017-04-09)
PROC: 0FB13ZX Excision of Right Lobe Liver, Percutaneous Approach, Diagnostic (ICD-10-PCS; principal; 2017-04-13)
PROC: 30233K1 Transfusion of Nonautologous Frozen Plasma into Peripheral Vein, Percutaneous Approach (ICD-10-PCS; 2017-04-13)
DX: K83.0 Cholangitis (principal); K83.1 Obstruction of bile duct; K76.6 Portal hypertension; D69.6 Thrombocytopenia, unspecified; K74.69 Other cirrhosis of liver; N39.0 Urinary tract infection, site not specified; K75.81 Nonalcoholic steatohepatitis (NASH); E78.5 Hyperlipidemia, unspecified; K29.70 Gastritis, unspecified, without bleeding; K57.10 Diverticulosis of small intestine without perforation or abscess without bleeding; R97.8 Other abnormal tumor markers
CPT/HCPCS: 36415; 36430; 71020; 74177; 74181; 76942; 80053; 81001; 82103; 82105; 82270; 82378; 82390; 82525; 82784; 82787; 83690; 83735; 84155; 84165; 85025; 85378; 85384; 85610; 85730; 86022; 86038; 86255; 86301; 86320; 86376; 86704; 86709; 86803; 86850; 86900; 86901; 87086; 87340; 88305; 88307; 88312; 88313; 96360; 96361; 99217; G0378; J0696; J2001; J7030; J7042; P9059; Q9967

== ENCOUNTER → 2017-12-16 | Outpatient (CLI) | END | disposition home or self-care (01) ==